=== PATIENT | male | born 1945 | race Caucasian/White ===

== ENCOUNTER 2022-03-31 03:38 | Inpatient (IN) ==
[2022-03-31] MEDS ORDERED: ONDANSETRON 4 MG/2 ML VIAL IV STA (03:46)
[2022-03-31 05:03] LABS: Basophils % 0.4 % (0.0-0.8); Eosinophils % 0.4 % (0.00-10.9); Hematocrit 36.1 VOL% (42.0-52.0); Hemoglobin 12.7 GM/DL (14.0-18.0); Immature Granulocytes % 0.3 %; Immature Granulocytes Absolute 0.03 #; Lymphocytes # 1.1 10*3/uL (1.4-4.0); Lymphocytes % 11.4 % (21.2-54.2); Mean Corpuscular HGB Conc 35.2 GM/DL (32-36); Mean Corpuscular Volume 88.9 FL (87-102); Mean Platelet Volume 10.3 FL (9.6-12.0); Monocytes # 0.5 10*3/uL (0.11-0.8); Monocytes % 5.6 % (1.7-12.7); Neutrophils % 81.9 % (38.7-73.9); Platelet Count 278 T/CUMM (130-400); Red Blood Count 4.06 MC/CUMM (3.8-5.5); Red Cell Distribution Width 15.1 % (9.3-17.3); White Blood Count 9.72 T/CUMM (4-12)
[2022-03-31 05:09] LABS: RBC,Urine 1 /HPF (0-4); Squamous Epithelial Cell,Urine Occasional /HPF (0-10)
[2022-03-31 05:10] LABS: Bilirubin,Urine Negative (Negative); Blood, Urine Negative (Negative); Glucose,Urine (UA) Negative (Negative); Ketones,Urine Negative (Negative); Nitrite,Urine Negative (Negative); Protein,Urine Negative (Negative); Urine Appearance Clear (Clear); Urine Color Yellow (Yellow); Urine pH 8.5 (4.5-8.0)
[2022-03-31 05:16] LABS: PT Patient Result 11.3 SECS (10.1-12.1); Partial Thromboplastin Time 30.2 SECS (23.7-32.9)
[2022-03-31 05:17] LABS: Barbiturates Screen,Urine Negative (Negative); Benzodiazepines Screen,Urine Negative (Negative); Cannabinoid Screen,Urine Negative (Negative); Opiate Screen,Urine Negative (Negative); Phencyclidine Screen,Urine Negative (Negative)
[2022-03-31 05:37] LABS: Alanine Aminotransferase 20 U/L (16-61); Albumin 3.4 G/DL (3.4-5.0); Alkaline Phosphatase 81 U/L (45-117); Aspartate Amino Transferase 18 U/L (0-37); Blood Urea Nitrogen 13 MG/DL (7-18); Calcium 9.2 MG/DL (8.5-10.1); Carbon Dioxide 23 MMOL/L (21-32); Chloride 103 MMOL/L (98-107); Glucose 115 MG/DL (74-106); Osmolality,Calculated 268.2 MOS/KG (273-304); Potassium 3.7 MMOL/L (3.5-5.1); Sodium 134 MMOL/L (136-145); Total Protein 7.4 G/DL (6.4-8.2)
[2022-03-31] MEDS ORDERED: LABETALOL 20 MG/4 ML SYRINGE IV PRN (07:35)
[2022-03-31] MEDS ORDERED: CHLORTHALIDONE 25 MG TABLET PO PRN (07:37)
[2022-03-31] MEDS ORDERED: PANTOPRAZOLE 40 MG TABLET PO PRN (07:37)
[2022-03-31] MEDS ORDERED: tiZANidine 4 MG TABLET PO PRN (07:37)
[2022-03-31] MEDS ORDERED: ADALIMUMAB 40 MG/0.8 ML SUBCUT PRN (07:37)
[2022-03-31] MEDS: FOLIC ACID 1 MG TABLET PO SCH (10:07)
[2022-03-31] MEDS: amLODIPine 5 MG TABLET PO SCH (10:07)
[2022-03-31] MEDS: TAMSULOSIN 0.4 MG CAPSULE PO SCH (10:07)
[2022-03-31] MEDS: FINASTERIDE 5 MG TABLET PO SCH (10:07)
[2022-03-31] MEDS: HEPARIN 5,000 UNIT/1 ML VIAL SUBCUT SCH ×3 (10:07→23:32)
[2022-03-31] MEDS: ASPIRIN 325 MG TABLET PO SCH (10:11)
[2022-03-31] MEDS: ATORVASTATIN 80 MG TABLET PO SCH (21:09)
[2022-04-01 04:47] LABS: Basophils # 0.1 10*3/uL (0.0-0.2); Basophils % 0.7 % (0.0-0.8); Eosinophils # 0.2 10*3/uL (0.0-0.87); Eosinophils % 2.5 % (0.00-10.9); Hematocrit 36.1 VOL% (42.0-52.0); Hemoglobin 12.6 GM/DL (14.0-18.0); Immature Granulocytes % 0.4 %; Immature Granulocytes Absolute 0.03 #; Lymphocytes # 1.7 10*3/uL (1.4-4.0); Lymphocytes % 24.8 % (21.2-54.2); Mean Corpuscular HGB Conc 34.9 GM/DL (32-36); Mean Corpuscular Volume 89.4 FL (87-102); Mean Platelet Volume 10.2 FL (9.6-12.0); Monocytes # 0.7 10*3/uL (0.11-0.8); Monocytes % 10.1 % (1.7-12.7); Neutrophils % 61.5 % (38.7-73.9); Platelet Count 271 T/CUMM (130-400); Red Blood Count 4.04 MC/CUMM (3.8-5.5); Red Cell Distribution Width 15.1 % (9.3-17.3); White Blood Count 6.73 T/CUMM (4-12)
[2022-04-01 05:18] LABS: Potassium 3.4 MMOL/L (3.5-5.1); Risk Ratio 2.49; VLDL Cholesterol 15.6 MG/DL
[2022-04-01] MEDS: HEPARIN 5,000 UNIT/1 ML VIAL SUBCUT SCH ×2 (09:18→18:16)
[2022-04-01] MEDS: FINASTERIDE 5 MG TABLET PO SCH (09:18)
[2022-04-01] MEDS: amLODIPine 5 MG TABLET PO SCH (09:18)
[2022-04-01] MEDS: ASPIRIN 325 MG TABLET PO SCH (09:18)
[2022-04-01] MEDS: FOLIC ACID 1 MG TABLET PO SCH (09:18)
[2022-04-01] MEDS: TAMSULOSIN 0.4 MG CAPSULE PO SCH (09:18)
[2022-04-01 15:47] LABS: Barbiturates Screen,Urine Negative (Negative); Benzodiazepines Screen,Urine Negative (Negative); Cannabinoid Screen,Urine Negative (Negative); Opiate Screen,Urine Negative (Negative); Phencyclidine Screen,Urine Negative (Negative)
[2022-04-01] MEDS: predniSONE 5 MG TABLET PO PRN (20:40)
[2022-04-01] MEDS: ATORVASTATIN 80 MG TABLET PO SCH (20:40)
[2022-04-02] MEDS: HEPARIN 5,000 UNIT/1 ML VIAL SUBCUT SCH ×2 (01:25→08:56)
[2022-04-02 07:50] VITALS: BP 130/66
[2022-04-02] MEDS: TAMSULOSIN 0.4 MG CAPSULE PO SCH (08:55)
[2022-04-02] MEDS: predniSONE 5 MG TABLET PO PRN (08:55)
[2022-04-02] MEDS: FINASTERIDE 5 MG TABLET PO SCH (08:55)
[2022-04-02] MEDS: ASPIRIN 325 MG TABLET PO SCH (08:55)
[2022-04-02] MEDS: amLODIPine 5 MG TABLET PO SCH (08:56)
[2022-04-02] MEDS: FOLIC ACID 1 MG TABLET PO SCH (08:56)
[2022-04-04] MEDS ORDERED: METHOTREXATE 2.5 MG TABLET PO SCH (08:00)
== END 2022-04-02 11:46 | DRG 65 ==
LOC: N.ED 03:38 → N.EDINP 07:31 → SUATTDRO 07:31 → N.EDINP 08:28 → N.TELEN 09:24
PROVIDERS: ADMIT Internal Medicine; ATTEND Internal Medicine